=== PATIENT | male | born 1985 | race Caucasian/White ===

== ENCOUNTER 2018-11-14 10:26 | Inpatient (IN) ==
[2018-11-14] MEDS ORDERED: Ondansetron 4 MG/2 ML VIAL IVP ONE (10:39)
[2018-11-14] MEDS ORDERED: *HR* FentaNYL (PF) 100 MCG/2 ML VIAL IVP ONE (10:41)
[2018-11-14] MEDS ORDERED: 0.9 % Sodium Chloride 1,000 ML IVC ONE (10:44)
--- NOTE | 2018-11-14 10:44 | Emergency Department Note ---
Disposition Clinical Impression: Jaundice, Transaminitis Hepatitis A Qualifiers: Hepatic coma status: without hepatic coma Qualified Code(s): B15.9 - Hepatitis A without hepatic coma Hepatitis C Qualifiers: Viral hepatitis chronicity: unspecified Hepatic coma status: without hepatic coma Qualified Code(s): B19.20 - Unspecified viral hepatitis C without hepatic coma Abdominal pain Qualifiers: Abdominal location: generalized Qualified Code(s): R10.84 - Generalized abdominal pain Disposition: Admitted As Inpatient Condition: Fair Time of Disposition: 12:25 General Adult HPI - General Chief complaint: ED Abdominal Pain Stated complaint: ABD Pain, HEP A ,Yellow Time Seen by Provider: 11/14/18 10:30 Source: patient, family Mode of arrival: ambulatory Limitations: no limitations Nursing Notes Reviewed: Yes Vital Signs Reviewed: Yes - History of Present Illness HPI Narrative: 33-year-old male with significant past medical history of fatty liver, and recent hepatitis A infection presenting to the emergency department chief co mplaint of nausea, vomiting and jaundice. Patient states he was recently seen here diagnosed hepatitis A and discharged home. Since being discharged home he said diffuse nausea, vomiting and abdominal pain that has acutely gotten worse over the past 2 days. Yesterday he felt more weak than normal and today when he woke up he was jaundiced. His girlfriend forced to come into the emergency department for further evaluation. He believes he was infected with hepatitis A when he was in the local [facility] less than a month ago. Patient denies any chest pain or shortness of breath associated with this. Has denied any fevers. Pain Scale: 7 - Related Data Previous Rx's Medication Instructions Recorded Ondansetron ODT [Zofran ODT] 4 mg SL Q8HR #5 tab.rapdis 11/24/17 Doxycycline 100 mg PO BID #20 capsule 08/03/18 Allergies Allergy/AdvReac Type Severity Reaction Status Date / Time cephalexin [From Keflex] Allergy Dizziness Verified 11/11/17 12:00 All systems ED: reviewed and negative except as stated. Constitutional: Denies: fever Eyes: Reports: as per HPI ENT ED: Reports: as per HPI Cardiovascular: Denies: chest pain Respiratory: Denies: dyspnea Gastrointestinal: Reports: abdominal pain, nausea, vomiting Genitourinary: Reports: as per HPI Musculoskeletal: Reports: as per HPI Integumentary: Reports: other (jaundice) Neurological: Reports: as per HPI Psychiatric: Reports: as per HPI Endocrine: Reports: as per HPI Hematological/Lymphatic: Reports: as per HPI Allergic/Immunologic: Reports: as per HPI Past Medical History - Past Medical History Attestation: Yes The following information was validated with the patient. Medical history: Reports: other Surgical history: Reports: no surgical history Psychiatric history: Reports: no psych history - Social History Smoking Status: Current every day smoker Smokeless Tobacco Status: No Alcohol use: Reports: occasionally Drug use: Reports: none, other Physical Exam - General Limitations: no limitations General appearance: alert, other - Head Head exam: atraumatic, normal inspection - Eye Eye exam: Present: scleral icterus - ENT ENT exam: mucous membranes dry - Neck Neck exam: Present: full ROM - Chest Chest inspection: Present: symmetric chest wall rise - Respiratory Respiratory exam: Present: normal lung sounds bilaterally. Absent: respiratory distress, wheezes - Cardiovascular Cardiovascular exam: Present: normal rhythm, tachycardia, normal heart sounds - Abdominal Exam Abdominal exam: Present: tenderness, organomegaly (hepatomegaly). Absent: distention, guarding, rebound Abdominal tenderness: Present: diffuse, moderate - Extremities Exam Extremities exam: Present: full ROM - Neurological Exam Neurological exam: Present: alert, oriented X3 - Skin Skin exam: Present: other (jaundice) Course Course Narrative: 33-year-old male presenting for jaundice and abdominal pain. Patient was seen a pproximately 9 days ago and diagnosed with hepatitis A. Since then patient has had intractable nausea and vomiting and today he noticed he was jaundice. In the room is alert and oriented 3. Mildly tachycardic in the low 100s but otherwise hemodynamically stable. Patient's physical exam shows jaundice, scleral icterus, hepatomegaly. Diffuse abdominal pain. Concern for worsening jaundice and hepatitis infection. Will obtain basic laboratory analysis including hepatic panel and PT/INR and PTT. Disposition most likely admission versus transfer. Patient agrees with this plan. - Reevaluation(s) Reevaluation #1: Patient's laboratory analysis significant for a total bilirubin of 9.8. Elevated AST, ALC and alkaline phosphatase. At this time due to patient's intractable nausea and vomiting and elevated liver enzymes with active hepatitis A superinfection on hepatitis C we will plan to admit the patient for further observation and treatment. I spoke with the nurse practitioner on-call for the GI team and he agrees to consult on the patient and see him while he is admitted. He had no further intervention or treatment recommendations. I spoke with the hospitalist occupational health physiotherapist Dr. Merritt who agrees to accept the patient at this time. Patient remains alert and oriented 3 and hemodynamically stable in the room. After IV fluids, Zofran and fentanyl patient states he is feeling moderately better. Vital Signs Temperature 98.9 F 11/14/18 10:33 Pulse Rate 107 11/14/18 10:33 Respiratory Rate 20 11/14/18 10:33 Blood Pressure 134/94 11/14/18 10:33 O2 Sat by Pulse Oximetry 99 11/14/18 10:33 Temperature 98.9 F 11/14/18 10:33 Pulse Rate 107 11/14/18 10:33 Respiratory Rate 20 11/14/18 10:33 Blood Pressure 134/94 11/14/18 10:33 O2 Sat by Pulse Oximetry 99 11/14/18 10:33 Oxygen Delivery Oxygen Delivery Room Air Medical Decision Making - MDM Narrative Medical decision making narrative: 1200 hrs.: Patient has significant increase in his AST total bilirubin. His INR is also elevated. We will speak with GI and on acetaminophen level. 1210 hrs.: GI said since the patient is not encephalopathic, he can stay here. We will speak with the patient and then admit to hospitalist with FELY nguyen. - Lab Data Result diagrams: 11/14/18 10:43 11/14/18 10:43 Lab Results 11/14/18 11/14/18 11/14/18 Range/Units 10:43 10:43 10:43 WBC 6.2 (4.3-11.1) K/mcL RBC 4.86 (4.19-5.50) M/mcL Hgb 15.9 (12.9-16.9) g/dL Hct 44.3 (37.5-50.1) % MCV 91.2 (83.0-100.0) fL MCH 32.7 (28.0-33.3) pg MCHC 35.9 H (31.6-35.5) g/dL RDW 13.7 (11.5-14.5) % Plt Count 151 (140-400) K/mcL MPV 11.3 (9.4-12.4) fL Seg Neutrophils % 54.0 % Band Neutrophils % 4.0 (0-4) % Lymphocytes % 32.0 % Monocytes % 10.0 % Neutrophils # 3.6 (1.6-8.9) K/mcL Lymphocytes # 2.0 (0.6-4.6) K/mcL Monocytes # 0.6 (0.0-1.3) K/mcL Reactive Lymphocytes Present A (Not Present) Platelet Estimate Normal (Normal) PT 15.7 H (9.4-12.1) Seconds INR 1.4 APTT 43.5 H (26.0-36.0) Seconds Sodium 132 L (136-145) mEq/L Potassium 3.4 L (3.5-5.1) mEq/L Chloride 95 L (98-107) mEq/L Carbon Dioxide 29 (23-29) mEq/L BUN 3 L (6-20) mg/dL Creatinine 0.78 (0.70-1.30) mg/dL Est GFR ( Amer) > 60 (> 60) Est GFR (Non-Af Amer) > 60 (> 60) BUN/Creatinine Ratio 4 L (6-26) Glucose 119 H (70-105) mg/dL Calculated Osmolality 272 L (280-300) Calcium 8.3 L (8.6-10.3) mg/dL Total Bilirubin 9.8 H (0.3-1.0) mg/dL Direct Bilirubin 7.2 H (0.0-0.2) mg/dL Indirect Bilirubin 2.6 H (0.0-1.2) mg/dL AST 1293 H (13-39) Units/L ALT > 500 H (7-52) Units/L Alkaline Phosphatase 229 H (34-104) Units/L Serum Total Protein 6.7 (6.4-8.9) g/dL Albumin 3.6 (3.5-5.7) g/dL Globulin 3.1 (2.4-3.5) g/dL Albumin/Globulin Ratio 1.2 (1.1-2.2) Lipase 63 (11-82) Units/L Acetaminophen < 10 L (10-20) mcg/mL Critical Care Time Critical Care Time: Yes Total Critical Care Time: 30 Attestation: Excluding any separately billable procedures. Attestation Statement - Attestation Attestation: This documentation is done with the assistance of Dragon dictation. Despite efforts made to ensure accuracy, there may be inaccuracies in inspector outside steam distribution or spelling and typographical errors. I examined this patient and my medical decision-making was reviewed with the Resident Physician. I agree with the documented findings, disposition and treatment plan as described except to the extent set forth below. Patient seen and evaluated by Dr. Bowens and myself, I agree with her evaluation and management plan, I supervised the care the patient's stay. Patient has a history of hepatitis A and hepatitis C and presents with jaundice and nausea and some abdominal discomfort today. We will check his labs try to make him more comfortable then speak with GI. He is in agreement with plan. He will most likely need admission.
[2018-11-14 11:07] LABS: Hematocrit 44.3 % (37.5-50.1); Hemoglobin 15.9 g/dL (12.9-16.9); Mean Corpuscular HGB Conc 35.9 g/dL (31.6-35.5); Mean Corpuscular Hemoglobin 32.7 pg (28.0-33.3); Mean Corpuscular Volume 91.2 fL (83.0-100.0); Mean Platelet Volume 11.3 fL (9.4-12.4); Platelet Count 151 K/mcL (140-400); Red Blood Count 4.86 M/mcL (4.19-5.50); Red Cell Distribution Width 13.7 % (11.5-14.5)
[2018-11-14 11:17] LABS: INR 1.4; Prothrombin Time 15.7 Seconds (9.4-12.1)
[2018-11-14 11:20] LABS: Activated Partial Thrombo Time 43.5 Seconds (26.0-36.0)
[2018-11-14 11:41] LABS: Alanine Aminotransferase > 500 Units/L (7-52); Albumin 3.6 g/dL (3.5-5.7); Albumin/Globulin Ratio 1.2 (1.1-2.2); Alkaline Phosphatase 229 Units/L (34-104); Aspartate Amino Transferase 1293 Units/L (13-39); BUN/Creatinine Ratio 4 (6-26); Bilirubin,Direct 7.2 mg/dL (0.0-0.2); Bilirubin,Indirect 2.6 mg/dL (0.0-1.2); Bilirubin,Total 9.8 mg/dL (0.3-1.0); Blood Urea Nitrogen 3 mg/dL (6-20); Calcium 8.3 mg/dL (8.6-10.3); Carbon Dioxide 29 mEq/L (23-29); Chloride 95 mEq/L (98-107); Globulin 3.1 g/dL (2.4-3.5); Glucose 119 mg/dL (70-105); Lipase 63 Units/L (11-82); Osmolality,Calculated 272 (280-300); Potassium 3.4 mEq/L (3.5-5.1); Sodium 132 mEq/L (136-145); Total Protein 6.7 g/dL (6.4-8.9); eGFR For Non-African Americans > 60 (> 60)
[2018-11-14 11:46] LABS: Monocytes # 0.6 K/mcL (0.0-1.3); Neutrophils # 3.6 K/mcL (1.6-8.9)
[2018-11-14 11:47] LABS: Platelet Estimate Normal (Normal); Reactive Lymphocytes Present (Not Present)
[2018-11-14 12:16] LABS: Acetaminophen < 10 mcg/mL (10-20)
[2018-11-14] MEDS ORDERED: Naloxone 0.4 MG/ML INJ IVP PRN (12:25)
[2018-11-14] MEDS ORDERED: 0.9 % Sodium Chloride 1,000 ML IVC SCH (12:30)
[2018-11-14 13:08] LABS: Bilirubin,Urine Large (Negative); Blood,Urine Negative (Negative); Clarity,Urine Slightly Hazy (Clear); Color,Urine Orange (Yellow); Glucose,Urine (UA) 250 mg/dL (Normal); Ketones,Urine Negative (Negative); PH,Urine 6.5 pH Units (5.0-8.0); Protein,Urine Negative (Neg-Trace); Specific Gravity,Urine 1.007 (1.010-1.025)
[2018-11-14 13:09] LABS: Leukocyte Esterase,Urine Trace (Negative); Nitrite,Urine Negative (Negative); Urobilinogen,Urine Normal (Normal)
[2018-11-14 13:10] LABS: Squamous Epithelial Cell,Urine Few per lpf (None-Few)
[2018-11-14 13:12] LABS: Bacteria,Urine Few per hpf (None-Few)
--- NOTE | 2018-11-14 13:19 | Internal Med History&Physical ---
Addendum entered and electronically signed by Matthew Eisenberg DO 11/14/18 14:28: Patient also has history of alcohol dependence and does display some signs of alcohol withdrawal. Will place him on CIWA protocol as a result. Original Note: <Matthew Eisenberg - Last Filed: 11/14/18 13:43> Date of Encounter: 11/14/18 Time of Encounter: 12:45 Assessment and Plan (1) Hepatitis A Current visit: Yes Status: Acute Patient was recently diagnosed with hepatitis A in the past few weeks. Likely exacerbated by daily usage of alcohol. Patient has elevated transaminases as well as an alkaline phosphatase. He presents with generalized abdominal tenderness. No thrombocytopenia was noticed. INR was in normal range. No active bleeding was noticed. No pruritus was noted. Patient's vital signs have been stable. - IV hydration - Clear liquid diet - Zofran as needed Qualifiers: Hepatic coma status: without hepatic coma Qualified Code(s): B15.9 - Hepatitis A without hepatic coma (2) Transaminitis Current visit: Yes Status: Acute Secondary to acute hepatitis A infection. (3) Jaundice Current visit: Yes Status: Acute Secondary to acute hepatitis A infection. (4) Hypokalemia Current visit: Yes Status: Acute Secondary to vomiting. Potassium at 3.4. - Normal saline with 10 mEq of potassium chloride. (5) UTI (urinary tract infection) Current visit: Yes Status: Acute Trace leukocyte esterase and urine. Patient is asymptomatic. - No need for treatment since patient is asymptomatic. - Culture pending. Qualifiers: Urinary tract infection type: acute cystitis Hematuria presence: without hematuria Qualified Code(s): N30.00 - Acute cystitis without hematuria (6) DVT prophylaxis Current visit: Yes Status: Acute SCD's. Internal Medicine - H&P: HPI Chief complaint: Nausea, vomiting Admitted From: Emergency Dept History of present illness: Mr. Campbell is a 33 year old male with a past medical history of recent hepatitis A, hepatitis C (nonactive), IV drug abuse history, and fatty liver that presents for nausea, vomiting, and jaundice. Patient was recently diagnosed with hepatitis A infection a few weeks ago. Patient says that since yesterday he noticed yellowing of his skin, increased vomiting and nausea, and increased abdominal tenderness. He denies any fever. He does say that he feels like he caught a cold yesterday citing clear productive sputum with cough. Patient also admits that he has been continuously drinking alcohol. He says he normally drinks 2-3 cans of [employer] hard lemonade daily although as of late he has been only been able to handle one can. He does state it is been trying to stay adequately hydrated throughout the day. Patient presented to the ED on 11/14/2018. He was noticed to have jaundice, scleral icterus and hepatomegaly on examination. His liver enzymes showed an AST of 1293 and an ALT of 500. He demonstrated an alkaline phosphatase of 229. His renal function was normal. He did show an elevated prothrombin time and PTT. INR was in normal range. No thrombocytopenia was noted. He showed an elevated total bilirubin of 9.8. Patient was admitted for active hepatitis A infection and the need for IV hydration. When seen today patient admits to yellowing of the skin. He admits to increased nausea and vomiting. Admits to increased generalized abdominal p ain. Admits to a minor cough is productive with clear sputum. Denies any fever. Denies dysuria or hematuria. Past Med Surg Social Fam HX - Past Medical History Medical history: other Additional medical history: HEP A Psychiatric history: no psych history - Past Surgical History Surgical History: no surgical history - Social History Smoking Status: Current every day smoker Smokeless Tobacco Status: No Alcohol use: occasionally Drug use: none, other Internal Medicine - H&P: Meds Ondansetron ODT [Zofran ODT] 4 mg SL Q8HR #5 tab.rapdis 11/24/17 [Rx] RX: Doxycycline 100 mg PO BID #20 capsule 08/03/18 [Rx] Allergy/AdvReac Type Severity Reaction Status Date / Time cephalexin [From Keflex] Allergy Dizziness Verified 11/11/17 12:00 All Systems PM: A 10-system review of systems was performed and is negative for pertinent findings except as documented above in the HPI. Review of systems: As per history of present illness - Constitutional Vitals: Temp Pulse Resp BP Pulse Ox 98.6 F 92 15 127/81 96 11/14/18 12:59 11/14/18 12:59 11/14/18 12:59 11/14/18 12:59 11/14/18 12:59 General appearance: Present: A&O X 3, no acute distress, answers questions appropriately - Head Head exam: Present: atraumatic, normocephalic - Eye Eye exam: Present: EOMI, scleral icterus - ENT ENT exam: Present: mucous membranes moist, normal oropharynx Additional comments: There was some sublingual jaundice noticed. - Respiratory Respiratory exam: Present: CTAB. Absent: accessory muscle use, rales, rhonchi, wheezes - Cardiovascular Cardiovascular exam: Present: RRR, +S1, +S2. Absent: diastolic murmur, gallop, rubs, systolic murmur - GI/Abdominal GI/Abdominal exam: Present: hepatomegaly (Hepatomegaly noticed. 1-2 cm below right lower costal region), normal bowel sounds, soft, tenderness (Mild generalized tenderness). Absent: guarding, rebound - Extremities Exam Extremities exam: Present: warm, radial pulses palpable and symmetrical. Absent: calf tenderness, cyanotic, pedal edema - Skin Skin exam: Present: warm Additional comments: Generalized jaundice of the skin most notably in the upper chest and neck and facial region noted. Internal Med - H&P Results - Labs CBC & Chem 7: 11/14/18 10:43 11/14/18 10:43 Labs: Short CBC 11/14/18 Range/Units 10:43 WBC 6.2 (4.3-11.1) K/mcL Hgb 15.9 (12.9-16.9) g/dL Hct 44.3 (37.5-50.1) % Plt Count 151 (140-400) K/mcL Neutrophils # 3.6 (1.6-8.9) K/mcL BMP 11/14/18 10:43 Sodium 132 L Potassium 3.4 L Chloride 95 L Carbon Dioxide 29 BUN 3 L Creatinine 0.78 Glucose 119 H Calcium 8.3 L Liver Function 11/14/18 Range/Units 10:43 Total Bilirubin 9.8 H (0.3-1.0) mg/dL Direct Bilirubin 7.2 H (0.0-0.2) mg/dL AST 1293 H (13-39) Units/L ALT > 500 H (7-52) Units/L Alkaline Phosphatase 229 H (34-104) Units/L Albumin 3.6 (3.5-5.7) g/dL Urine 11/14/18 Range/Units 12:37 Urine Color Virgie A (Yellow) Urine Clarity Slightly Hazy (Clear) Urine pH 6.5 (5.0-8.0) pH Units Ur Specific [place] 1.007 L (1.010-1.025) Urine Protein Negative (Neg-Trace) mg/dL Urine Glucose (UA) 250 H (Normal) mg/dL <Yosi Marx - Last Filed: 11/14/18 15:21> Date of Encounter: 11/14/18 Internal Medicine - H&P: HPI History of present illness: Mr. Campbell is a 33 year old male All Systems PM: A 10-system review of systems was performed and is negative for pertinent findings except as documented above in the HPI. - Constitutional Vitals: Temp Pulse Resp BP Pulse Ox 98.6 F 92 15 127/81 96 11/14/18 12:59 11/14/18 12:59 11/14/18 12:59 11/14/18 12:59 11/14/18 12:59 Internal Med - H&P Results - Labs CBC & Chem 7: 11/14/18 10:43 11/14/18 10:43 Labs: Short CBC 11/14/18 Range/Units 10:43 WBC 6.2 (4.3-11.1) K/mcL Hgb 15.9 (12.9-16.9) g/dL Hct 44.3 (37.5-50.1) % Plt Count 151 (140-400) K/mcL Neutrophils # 3.6 (1.6-8.9) K/mcL BMP 11/14/18 10:43 Sodium 132 L Potassium 3.4 L Chloride 95 L Carbon Dioxide 29 BUN 3 L Creatinine 0.78 Glucose 119 H Calcium 8.3 L Liver Function 11/14/18 Range/Units 10:43 Total Bilirubin 9.8 H (0.3-1.0) mg/dL Direct Bilirubin 7.2 H (0.0-0.2) mg/dL AST 1293 H (13-39) Units/L ALT > 500 H (7-52) Units/L Alkaline Phosphatase 229 H (34-104) Units/L Albumin 3.6 (3.5-5.7) g/dL Urine 11/14/18 Range/Units 12:37 Urine Color Virgie A (Yellow) Urine Clarity Slightly Hazy (Clear) Urine pH 6.5 (5.0-8.0) pH Units Ur Specific [place] 1.007 L (1.010-1.025) Urine Protein Negative (Neg-Trace) mg/dL Urine Glucose (UA) 250 H (Normal) mg/dL - Attending Attestation I examined this patient and my medical decision-making was reviewed with the Resident Physician Dr. Eisenberg. I agree with the documented findings, disposition and treatment plan as described except to the extent set forth below. Mr. Campbell is a 33 year old male with a past medical history of recent hepatitis A, chronic hepatitis C, IV drug abuse history, and fatty liver that presents to ER with worsening nausea, vomiting, and jaundice. Patient was recently diagnosed with hepatitis A infection dx on 11/05/18. Pt is chronic alcoholic too he still drinking 1-2 beers every night. He denied any CP / SOB. Gen: A, A, O x 3 Chest: CTAB NNo crackles, no wheeing Heart: S1S2+ RRR No murmurs HEENT: Sclera - icteric Skin- slightly jaundiced a/p 1. Acute non obstructive jaundice due to Hep A inf + Alcoholism 2. Acute Hep A inf 3. chronic Hep C 4. Alcohol dependence Clear liquid diet IV hydration Thiamine and Folic acid B12 inj CIWA protocol Ativan as needed
[2018-11-14] MEDS ORDERED: *HR* LORazepam 2 MG/ML VIAL IVP PRN ×3 (14:26)
[2018-11-14] MEDS: Thiamine (B-1) 100 MG TABLET PO SCH (15:01)
[2018-11-14] MEDS: Folic Acid 1 MG TABLET PO SCH (15:01)
[2018-11-14] MEDS: Vitamin B Complex/Vit C/Vit E 1 EACH TABLET PO SCH (15:01)
[2018-11-14] MEDS ORDERED: Cyanocobalamin (B-12) 1,000 MCG/ML VIAL IM ONE (15:10)
[2018-11-14] MEDS: OXYCODONE Oral CONC 10 MG/0.5 ML ORAL.SYG SL PRN ×2 (16:13→21:39)
[2018-11-14] MEDS: Ondansetron 4 MG/2 ML VIAL IVP PRN (19:32)
[2018-11-14] MEDS ORDERED: Ibuprofen 400 MG TABLET PO ONE (22:15)
[2018-11-15 06:32] LABS: Basophils % 1.1 %; Eosinophils # 0.1 K/mcL (0.0-0.6); Eosinophils % 1.9 %; Hemoglobin 15.2 g/dL (12.9-16.9); Immature Granulocytes % 0.3 % (0-4); Mean Corpuscular HGB Conc 35.3 g/dL (31.6-35.5); Mean Corpuscular Hemoglobin 32.4 pg (28.0-33.3); Mean Corpuscular Volume 91.7 fL (83.0-100.0); Mean Platelet Volume 11.7 fL (9.4-12.4); Monocytes # 0.6 K/mcL (0.0-1.3); Monocytes % 16.7 %; Platelet Count 123 K/mcL (140-400); Red Blood Count 4.69 M/mcL (4.19-5.50)
[2018-11-15 06:39] LABS: INR 1.6; Prothrombin Time 18.2 Seconds (9.4-12.1)
[2018-11-15 06:41] LABS: Activated Partial Thrombo Time 51.4 Seconds (26.0-36.0)
[2018-11-15 06:58] LABS: Platelet Estimate Slight Decrease (Normal); Reactive Lymphocytes Present (Not Present)
[2018-11-15 07:11] LABS: Alanine Aminotransferase > 500 Units/L (7-52); Albumin 2.9 g/dL (3.5-5.7); Albumin/Globulin Ratio 1.1 (1.1-2.2); Alkaline Phosphatase 182 Units/L (34-104); Aspartate Amino Transferase 1150 Units/L (13-39); BUN/Creatinine Ratio 5 (6-26); Bilirubin,Total 11.4 mg/dL (0.3-1.0); Blood Urea Nitrogen 4 mg/dL (6-20); Calcium 8.3 mg/dL (8.6-10.3); Carbon Dioxide 27 mEq/L (23-29); Chloride 102 mEq/L (98-107); Globulin 2.6 g/dL (2.4-3.5); Glucose 82 mg/dL (70-105); Osmolality,Calculated 274 (280-300); Sodium 134 mEq/L (136-145); Total Protein 5.5 g/dL (6.4-8.9); eGFR For Non-African Americans > 60 (> 60)
[2018-11-15] MEDS ORDERED: Cyanocobalamin (B-12) 1,000 MCG TABLET PO SCH (09:00)
[2018-11-15] MEDS: Vitamin B Complex/Vit C/Vit E 1 EACH TABLET PO SCH (09:41)
[2018-11-15] MEDS: Cyanocobalamin (B-12) 1,000 MCG/ML VIAL IM SCH (09:41)
[2018-11-15] MEDS: Folic Acid 1 MG TABLET PO SCH ×2 (09:41→09:51)
[2018-11-15] MEDS: Thiamine (B-1) 100 MG TABLET PO SCH (09:41)
[2018-11-15] MEDS: OXYCODONE Oral CONC 10 MG/0.5 ML ORAL.SYG SL PRN ×2 (09:42→17:38)
[2018-11-15] MEDS: 0.9 % Sodium Chloride 1,000 ML IVC SCH ×2 (10:02→23:55)
--- NOTE | 2018-11-15 10:28 | Internal Med Progress Note ---
Hospitalist Progress Note - Encounter Date of Encounter: 11/15/18 Time of Encounter: 10:00 - Subjective Interval History: Mr. Campbell is a 33 year old male with a past medical history of recent hepatitis A, chronic hepatitis C, IV drug abuse history, and fatty liver that presented to ER with worsening nausea, vomiting, and jaundice. Patient was recently diagnosed with hepatitis A infection dx on 11/05/18. Pt is chronic alcoholic too he still drinking 1-2 beers every night. He denied any CP / SOB. Patient was seen and examined bedside. He still feeling very weak and lethargic. Started having tremors today. He is tolerating clear liquid diet well. Still have mild right upper quadrant discomfort. - Exam Vitals: Temp Pulse Resp BP Pulse Ox 97.9 F 71 16 109/71 98 11/15/18 06:42 11/15/18 06:42 11/15/18 06:42 11/15/18 06:42 11/15/18 06:42 Exam: Gen: Alert, awake, Oriented to time,place and person, looks weak and lethargic..Tremors+ Chest: Diminished breath sounds B/L, No wheezing, No crackles, No rales Heart: S1S2+ RRR No murmurs Abd: Soft, mildly discomfort and right upper quadrant area, BS +, No organomegaly Ext: No edema, pulses are palpable, No calf tenderness Neuro : Benign findings Skin: No rash. - Assessment and Plan (1) Hepatitis A Current Visit: Yes Status: Acute Assessment and Plan: Total bilirubin still trending up continue close monitoring continue IV hydration avoid hepatotoxic medications continue symptomatic and supportive care Patient does need to stay in the hospital more than 2 midnights and need to close monitoring of his labs due to his complex medical problems. So we will change him to full admission today. (2) Jaundice Current Visit: Yes Status: Acute Assessment and Plan: Due to hepatitis A infection Reviewed his RUQ US - showed extensive diffuse edematous gallbladder wall thickening suggesting acalculus cholecystitis mostly due to hepatitis if patient pain won't improve with symptomatic and supportive care, will consider surgery consult for further workup (3) Abdominal pain Current Visit: Yes Status: Acute Assessment and Plan: due to acute infectious Hepatitis continue symptomatic and supportive care (4) Alcohol dependence Current Visit: Yes Status: Acute Assessment and Plan: High risk to go to DTs continue CIWA protocol Ativan as needed Counseled the pt to quit drinking (5) B12 deficiency Current Visit: Yes Status: Acute Assessment and Plan: Due to chronic alcohol dependence started him on B12 supplements (6) UTI (urinary tract infection) Current Visit: Yes Status: Acute Assessment and Plan: UA seems to be abnormal Started him on Cipro will follow-up on urine culture (7) Hepatitis C Current Visit: Yes Status: Acute Assessment and Plan: Need to follow up with PCP / ID as an outpatient - Time Spent with Patient Total time spent is greater than 50% in coordination of care (as documented) at patient's floor/unit and/or counseling patient: Internal Medicine: Result - Labs CBC & Chem 7: 11/15/18 06:09 11/15/18 06:09 Labs: Short CBC 11/14/18 11/15/18 Range/Units 10:43 06:09 WBC 6.2 3.7 L (4.3-11.1) K/mcL Hgb 15.9 15.2 (12.9-16.9) g/dL Hct 44.3 43.0 (37.5-50.1) % Plt Count 151 123 L (140-400) K/mcL Neutrophils # 3.6 2.0 (1.6-8.9) K/mcL BMP 11/14/18 11/15/18 10:43 06:09 Sodium 132 L 134 L Potassium 3.4 L 4.0 Chloride 95 L 102 Carbon Dioxide 29 27 BUN 3 L 4 L Creatinine 0.78 0.81 Glucose 119 H 82 Calcium 8.3 L 8.3 L Liver Function 11/14/18 11/15/18 Range/Units 10:43 06:09 Total Bilirubin 9.8 H 11.4 H (0.3-1.0) mg/dL Direct Bilirubin 7.2 H (0.0-0.2) mg/dL AST 1293 H 1150 H (13-39) Units/L ALT > 500 H > 500 H (7-52) Units/L Alkaline Phosphatase 229 H 182 H (34-104) Units/L Albumin 3.6 2.9 L (3.5-5.7) g/dL Urine 11/14/18 Range/Units 12:37 Urine Color Glenn A (Yellow) Urine Clarity Slightly Hazy (Clear) Urine pH 6.5 (5.0-8.0) pH Units Ur Specific [place] 1.007 L (1.010-1.025) Urine Protein Negative (Neg-Trace) mg/dL Urine Glucose (UA) 250 H (Normal) mg/dL - ABG Interpretation ABG results: PT/INR, D-dimer PT 18.2 Seconds (9.4-12.1) H 11/15/18 06:09 - Impressions Impressions Liver Ultrasound 11/14/18 15:21 IMPRESSION: 1. Extensive new diffuse edematous gallbladder wall thickening with questionable trace pericholecystic fluid, suggesting acalculous cholecystitis. Consider confirmation with a nuclear medicine hepatobiliary scan. 2. No associated biliary obstruction. D/ / Louie Gay MD / Louie Gay MD Interpreting Provider: Louie Gay MD Consult Discharge Plan - Plan Referrals: Matthew Eisenberg DO [Primary Care Provider] - (1) Hepatitis A Qualifiers: Hepatic coma status: without hepatic coma Qualified Code(s): B15.9 - Hepatitis A without hepatic coma (3) Abdominal pain Qualifiers: Abdominal location: generalized Qualified Code(s): R10.84 - Generalized abdominal pain (6) UTI (urinary tract infection) Qualifiers: Urinary tract infection type: acute cystitis Hematuria presence: without hematuria Qualified Code(s): N30.00 - Acute cystitis without hematuria (7) Hepatitis C Qualifiers: Viral hepatitis chronicity: unspecified Hepatic coma status: without hepatic coma Qualified Code(s): B19.20 - Unspecified viral hepatitis C without hepatic coma
[2018-11-15] MEDS ORDERED: WATER IVC ONE (13:30)
[2018-11-15] MEDS ORDERED: D5 IVC ONE (13:30)
[2018-11-15] MEDS ORDERED: ACETYLCYSTEINE IVC ONE (13:30)
[2018-11-15] MEDS ORDERED: Insulin Human Regular 4 UNIT in 0.9 % Sodium Chloride 10 ML IV ONE (13:35)
[2018-11-15] MEDS ORDERED: Acetylcysteine 3,900 MG in D5% in Water 500 ML IVC ONE (14:30)
[2018-11-15] MEDS: Ondansetron 4 MG/2 ML VIAL IVP PRN (15:14)
--- NOTE | 2018-11-15 15:35 | Gastroenterology Consult Note ---
<Dmitri Larsen - Last Filed: 11/15/18 16:22> Date of Encounter: 11/15/18 Time of Encounter: 09:15 - Assessment and plan (1) Hepatitis A Current Visit: Yes Status: Acute Assessment and plan: Patient with reactive Hepatitis A labs 10 days ago Was seen previously in ED on 11/05, and was discharged with symptom resolution - he returned for similar complaints Continue supportive care Patient on IVF hydration Patient on zofran for nausea Patient on oxycodone for pain Patient started on soft diet Will start N-acetylcysteine regimen, but patient will need to remain inpatient for 3 days Qualifiers: Hepatic coma status: without hepatic coma Qualified Code(s): B15.9 - Hepatitis A without hepatic coma (2) Hepatitis C Current Visit: Yes Status: Acute Assessment and plan: Patient's lab was reactive for Hepatitis C on 11/15 Follow-up labs of hep C RNA quant and viral load were not detected Patient's presentation is more likely related to acute hepatitis A infection Qualifiers: Viral hepatitis chronicity: unspecified Hepatic coma status: without hepatic coma Qualified Code(s): B19.20 - Unspecified viral hepatitis C without hepatic coma - Time Spent With Patient Total time spent is greater than 50% in coordination of care (as documented) at patient's floor/unit and/or counseling patient: GI History of Present Illness - Data of Consult Consult date: 11/15/18 Requesting Physician: Yosi Marx MD - Consult Narrative Reason for consult: Hepatitis A History of present illness: Mr. Campbell is a 33 year old male with PMHx of Hep C, recent hep A, IV drug use presented to [facility] on 11/14 with complaints of abdominal pain, nausea, vomiting, and jaundice. GI was consulted for acute hepatitis A infection. Patient's labs in ED were significant for Pt 15.7, INR 1.4, T. bili 9.8, AST 1293, ALT >500, Alk phos 229. Acetaminophen level less than 10. US showed edematous GB wall thickening with trace pericholecystic fluid and no ductal obstruction, normal appearing liver. Patient seen and examined today. He states his abdominal pain is mainly in RUQ with some radiation to the left upper quadrant. It started about a week ago. He complains of nausea and non-bloody vomiting for the past 2 weeks. Patient hasn't had a BM for 5-6 days, but states he doesn't have an appetite and hasn't eaten much. Patient was seen in the ED on 11/05 for similar complaints and was discharged home after resolution of symptoms. Abdomen/pelvis CT during that visit was unremarkable. Later blood work came back reactive for Hep A, and patient was called and informed of results. Patient states his symptoms did improve when he was in the ED 10 days ago, but today he feels about the same as he did during that visit. Patient admits to history of IV drug use and 3 tattoos. He is currently on suboxone for treatment for his opioid addiction. He admits to drinking 1-2 [employer] hard lemonade most nights of the week. He is a current smoker or less than 1/2 PPD for the past 12 years. He denies EGD or colonoscopy in the past. Past Med Surg Social Fam HX - Past Medical History Medical history: other Additional medical history: HEP A, IV drug use, smoker,fatty liver, Psychiatric history: no psych history - Past Surgical History Surgical History: no surgical history - Social History Smoking Status: Current every day smoker Packs per day: 1/2 Smokeless Tobacco Status: No Alcohol use: occasionally Drug use: none, other - Constitutional Vitals: Temp Pulse Resp BP Pulse Ox 98 F 74 16 115/70 98 11/15/18 11:17 11/15/18 11:17 11/15/18 11:17 11/15/18 11:17 11/15/18 11:17 General appearance: Present: A&O X 3 Exam: moderate distress - Eye Eye exam: Present: scleral icterus - Respiratory Respiratory exam: Present: CTAB - Cardiovascular Cardiovascular exam: Present: RRR - GI/Abdominal GI/Abdominal exam: Present: normal bowel sounds, soft, tenderness (RUQ, epigatrium, and LUQ). Absent: bruit, distended, firm, guarding, no peritoneal signs - Neurological Exam Neurological exam: Present: no focal deficits Additional comments: no encephalopathy, no asterixis - Skin Additional comments: Jaundice Results - Labs CBC & Chem 7: 11/15/18 06:09 11/15/18 06:09 Labs: Last Result Calcium 8.3 mg/dL (8.6-10.3) L 11/15/18 06:09 Entire Visit Hgb 15.2 g/dL (12.9-16.9) 11/15/18 06:09 Hct 43.0 % (37.5-50.1) 11/15/18 06:09 PT 18.2 Seconds (9.4-12.1) H 11/15/18 06:09 Total Bilirubin 11.4 mg/dL (0.3-1.0) H 11/15/18 06:09 AST 1150 Units/L (13-39) H 11/15/18 06:09 ALT > 500 Units/L (7-52) H 11/15/18 06:09 Lipase 63 Units/L (11-82) 11/14/18 10:43 Acetaminophen < 10 mcg/mL (10-20) L 11/14/18 10:43 - ABG ABG results: PT/INR, D-dimer PT 18.2 Seconds (9.4-12.1) H 11/15/18 06:09 - Impressions Impressions Liver Ultrasound 11/14/18 15:21 IMPRESSION: 1. Extensive new diffuse edematous gallbladder wall thickening with questionable trace pericholecystic fluid, suggesting acalculous cholecystitis. Consider confirmation with a nuclear medicine hepatobiliary scan. 2. No associated biliary obstruction. D/ / Louie Gay MD / Louie Gay MD Interpreting Provider: Louie Gay MD Consult Discharge Plan - Plan Referrals: Matthew Eisenberg DO [Primary Care Provider] - <Ranjith Petit - Last Filed: 11/16/18 14:41> Date of Encounter: 11/15/18 Time of Encounter: 13:00 - Time Spent With Patient Total time spent is greater than 50% in coordination of care (as documented) at patient's floor/unit and/or counseling patient: GI History of Present Illness - Data of Consult Requesting Physician: Yosi Marx MD - Consult Narrative History of present illness: Mr. Campbell is a 33 year old male - Constitutional Vitals: Temp Pulse Resp BP Pulse Ox 99.0 F 79 15 112/71 96 11/16/18 10:53 11/16/18 10:53 11/16/18 10:53 11/16/18 10:53 11/16/18 10:53 Results - Labs CBC & Chem 7: 11/16/18 08:41 11/16/18 11:08 Labs: Last Result Calcium 8.3 mg/dL (8.6-10.3) L 11/16/18 11:08 Entire Visit Hgb 14.0 g/dL (12.9-16.9) 11/16/18 08:41 Hct 38.6 % (37.5-50.1) 11/16/18 08:41 PT 20.9 Seconds (9.4-12.1) H 11/16/18 11:08 Total Bilirubin 14.4 mg/dL (0.3-1.0) H 11/16/18 08:41 AST 815 Units/L (13-39) H 11/16/18 08:41 ALT > 500 Units/L (7-52) H 11/16/18 08:41 Lipase 63 Units/L (11-82) 11/14/18 10:43 Acetaminophen < 10 mcg/mL (10-20) L 11/14/18 10:43 - ABG ABG results: PT/INR, D-dimer PT 20.9 Seconds (9.4-12.1) H 11/16/18 11:08 - Attending Attestation I examined this patient and my medical decision-making was reviewed with the Resident Physician. I agree with the documented findings, disposition and treatment plan as described except to the extent set forth below. Patient seen. Examination patient deeply jaundiced. Has upper abdominal tenderness. Assessment: Acute hepatitis with the liver failure patient is not encephalopathic. Patient bilirubin has been worsening. Recommendation: IV fluid supportive care and also started on Mucomyst
[2018-11-15] MEDS: Acetylcysteine 7,700 MG in D5% in Water 1,000 ML IVC SCH (19:50)
[2018-11-15] MEDS ORDERED: *HR* LORazepam 0.5 MG TABLET PO ONE (23:31)
[2018-11-16] MEDS: OXYCODONE Oral CONC 10 MG/0.5 ML ORAL.SYG SL PRN ×3 (00:42→21:54)
[2018-11-16 09:19] LABS: Hematocrit 38.6 % (37.5-50.1); Mean Corpuscular HGB Conc 36.3 g/dL (31.6-35.5); Mean Corpuscular Hemoglobin 32.3 pg (28.0-33.3); Mean Corpuscular Volume 89.1 fL (83.0-100.0); Mean Platelet Volume 12.5 fL (9.4-12.4); Platelet Count 116 K/mcL (140-400); Red Blood Count 4.33 M/mcL (4.19-5.50); Red Cell Distribution Width 13.6 % (11.5-14.5)
[2018-11-16] MEDS: Thiamine (B-1) 100 MG TABLET PO SCH (09:37)
[2018-11-16] MEDS: Vitamin B Complex/Vit C/Vit E 1 EACH TABLET PO SCH (09:37)
[2018-11-16] MEDS: Folic Acid 1 MG TABLET PO SCH (09:37)
[2018-11-16] MEDS: 0.9 % Sodium Chloride 1,000 ML IVC SCH ×2 (09:37→09:44)
[2018-11-16] MEDS: Cyanocobalamin (B-12) 1,000 MCG/ML VIAL IM SCH (09:38)
[2018-11-16 09:51] LABS: Alanine Aminotransferase > 500 Units/L (7-52); Albumin 2.8 g/dL (3.5-5.7); Albumin/Globulin Ratio 1.1 (1.1-2.2); Alkaline Phosphatase 155 Units/L (34-104); Aspartate Amino Transferase 815 Units/L (13-39); Bilirubin,Direct 9.7 mg/dL (0.0-0.2); Bilirubin,Indirect 4.7 mg/dL (0.0-1.2); Bilirubin,Total 14.4 mg/dL (0.3-1.0); Globulin 2.5 g/dL (2.4-3.5); Total Protein 5.3 g/dL (6.4-8.9)
--- NOTE | 2018-11-16 11:45 | Internal Med Progress Note ---
<Matthew Eisenberg - Last Filed: 11/16/18 11:43> Date of Encounter: 11/16/18 Time of Encounter: 09:10 - Assessment and plan (1) Hepatitis A Current Visit: Yes Status: Acute Assessment and plan: Total bilirubin still seems to be still increasing. Was at 11.4 yesterday and today at 14.4. His liver enzymes are down trending. Yesterday his AST and ALT were at 1150 and > 500 respectively and today are oat 815 and > 500. Alk phosph is also dwontrending. - Continue IV hydration. -Avoid hepatotoxic medications. - continue symptomatic and supportive care. Qualifiers: Hepatic coma status: without hepatic coma Qualified Code(s): B15.9 - Hepatitis A without hepatic coma (2) Transaminitis Current Visit: Yes Status: Acute Assessment and plan: Downtrending. (3) Jaundice Current Visit: Yes Status: Resolved (4) UTI (urinary tract infection) Current Visit: Yes Status: Acute Assessment and plan: UA showed signs of infection however urine culture showed no growth. Patient afebrile. Denies any dysuria or hematuria. - Stop ciprofloxacin treatment. Qualifiers: Urinary tract infection type: acute cystitis Hematuria presence: without hematuria Qualified Code(s): N30.00 - Acute cystitis without hematuria (5) Alcohol dependence Current Visit: Yes Status: Acute Assessment and plan: High risk to go to DTs. Currently denies any tremors. - continue CIWA protocol - Ativan as needed - Counseled the pt to quit drinking Qualifiers: Substance use status: in withdrawal Complication of substance-induced condition: uncomplicated Qualified Code(s): F10.230 - Alcohol dependence with withdrawal, uncomplicated (6) B12 deficiency Current Visit: Yes Status: Acute Assessment and plan: Secondary to alcohol dependence. - Continue 1000 mcg IM daily. (7) Hepatitis C Current Visit: Yes Status: Acute Assessment and plan: Chronic hepatitis. No active viral load detected in recent labs. Qualifiers: Viral hepatitis chronicity: unspecified Hepatic coma status: without hepatic coma Qualified Code(s): B19.20 - Unspecified viral hepatitis C without hepatic coma (8) DVT prophylaxis Current Visit: Yes Status: Acute Assessment and plan: SCD's. - Subjective Interval history: When seen today patient denies any nausea. He did admit to one bout of vomiting yesterday afternoon. He denies any hematemesis. Patient says his abdominal pain has improved and has reduced from a 5 out of 10 to a 3 out of 10 in severity. She denies any tremors. Denies any chest pain or shortness of breath. Denies any fever. He is able to tolerate solid foods and liquids. Denies any bleeding, melena, or hematochezia. Denies any dysuria or hematuria. - Constitutional Vitals: Temp Pulse Resp BP Pulse Ox 99.0 F 79 15 112/71 96 11/16/18 10:53 11/16/18 10:53 11/16/18 10:53 11/16/18 10:53 11/16/18 10:53 General appearance: Present: A&O X 3, no acute distress, answers questions appropriately - Eye Eye exam: Present: sclera anicteric - Respiratory Respiratory exam: Present: CTAB. Absent: accessory muscle use, rales, rhonchi, wheezes - Cardiovascular Cardiovascular exam: Present: RRR, +S1, +S2. Absent: diastolic murmur, gallop, rubs, systolic murmur - GI/Abdominal GI/Abdominal exam: Present: normal bowel sounds, soft, tenderness (Mild tenderness in all 4 quadrants with deep palpation.). Absent: guarding, rebound - Extremities Exam Extremities exam: Present: warm, radial pulses palpable and symmetrical. Absent: calf tenderness, cyanotic, pedal edema - Skin Additional comments: No jaundice noted. Internal Medicine: Result - Labs CBC & Chem 7: 11/16/18 08:41 11/15/18 06:09 Labs: Short CBC 11/16/18 Range/Units 08:41 WBC 4.4 (4.3-11.1) K/mcL Hgb 14.0 (12.9-16.9) g/dL Hct 38.6 (37.5-50.1) % Plt Count 116 L (140-400) K/mcL Liver Function 11/16/18 Range/Units 08:41 Total Bilirubin 14.4 H (0.3-1.0) mg/dL Direct Bilirubin 9.7 H (0.0-0.2) mg/dL AST 815 H (13-39) Units/L ALT > 500 H (7-52) Units/L Alkaline Phosphatase 155 H (34-104) Units/L Albumin 2.8 L (3.5-5.7) g/dL - ABG Interpretation ABG results: PT/INR, D-dimer PT 18.2 Seconds (9.4-12.1) H 11/15/18 06:09 Consult Discharge Plan - Plan Referrals: Matthew Eisenberg DO [Primary Care Provider] - <Yosi Marx - Last Filed: 11/16/18 12:36> Date of Encounter: 11/16/18 - Assessment and plan (1) Hepatitis A Current Visit: Yes Status: Acute Qualifiers: Hepatic coma status: without hepatic coma Qualified Code(s): B15.9 - Hepatitis A without hepatic coma (2) Jaundice Current Visit: Yes Status: Resolved (3) Abdominal pain Current Visit: Yes Status: Acute Qualifiers: Abdominal location: generalized Qualified Code(s): R10.84 - Generalized abdominal pain (4) Alcohol dependence Current Visit: Yes Status: Acute Qualifiers: Substance use status: in withdrawal Complication of substance-induced condition: uncomplicated Qualified Code(s): F10.230 - Alcohol dependence with withdrawal, uncomplicated (5) B12 deficiency Current Visit: Yes Status: Acute (6) UTI (urinary tract infection) Current Visit: Yes Status: Acute Qualifiers: Urinary tract infection type: acute cystitis Hematuria presence: without hematuria Qualified Code(s): N30.00 - Acute cystitis without hematuria (7) Hepatitis C Current Visit: Yes Status: Acute Qualifiers: Viral hepatitis chronicity: unspecified Hepatic coma status: without hepatic coma Qualified Code(s): B19.20 - Unspecified viral hepatitis C without hepatic coma - Constitutional Vitals: Temp Pulse Resp BP Pulse Ox 99.0 F 79 15 112/71 96 11/16/18 10:53 11/16/18 10:53 11/16/18 10:53 11/16/18 10:53 11/16/18 10:53 Internal Medicine: Result - Labs CBC & Chem 7: 11/16/18 08:41 11/16/18 11:08 Labs: Short CBC 11/16/18 Range/Units 08:41 WBC 4.4 (4.3-11.1) K/mcL Hgb 14.0 (12.9-16.9) g/dL Hct 38.6 (37.5-50.1) % Plt Count 116 L (140-400) K/mcL BMP 11/16/18 11:08 Sodium 133 L Potassium 3.5 Chloride 102 Carbon Dioxide 24 BUN 2 L Creatinine 0.75 Glucose 96 Calcium 8.3 L Liver Function 11/16/18 Range/Units 08:41 Total Bilirubin 14.4 H (0.3-1.0) mg/dL Direct Bilirubin 9.7 H (0.0-0.2) mg/dL AST 815 H (13-39) Units/L ALT > 500 H (7-52) Units/L Alkaline Phosphatase 155 H (34-104) Units/L Albumin 2.8 L (3.5-5.7) g/dL - ABG Interpretation ABG results: PT/INR, D-dimer PT 20.9 Seconds (9.4-12.1) H 11/16/18 11:08 - Attending Attestation I examined this patient and my medical decision-making was reviewed with the Resident Physician Dr. Eisenberg. I agree with the documented findings, disposition and treatment plan as described except to the extent set forth below. Mr. Campbell is a 33 year old male with a past medical history of recent hepatitis A, chronic hepatitis C, IV drug abuse history, and fatty liver that presents to ER with worsening nausea, vomiting, and jaundice. Patient was recently diagnosed with hepatitis A infection dx on 11/05/18. Pt is chronic alcoholic too he still drinking 1-2 beers every night. He denied any CP / SOB. His abd pain is better with current meds. He is tolerating PO intake well. Gen: A, A, O x 3 Chest: CTAB, No crackles, no wheezing Heart: S1S2+ RRR No murmurs HEENT: Sclera - icteric Skin- slightly jaundiced a/p 1. Acute non obstructive jaundice due to Hep A inf + Alcoholism 2. Acute Hep A inf 3. chronic Hep C 4. Alcohol dependence soft diet GI is on board GI recommend Acetylcystiene gtt Total bili still trending up However transaminases are trending down PO Thiamine and Folic acid B12 inj CIWA protocol Ativan as needed
[2018-11-16 11:50] LABS: INR 1.9; Prothrombin Time 20.9 Seconds (9.4-12.1)
[2018-11-16 11:58] LABS: BUN/Creatinine Ratio 3 (6-26); Blood Urea Nitrogen 2 mg/dL (6-20); Carbon Dioxide 24 mEq/L (23-29); Chloride 102 mEq/L (98-107); Glucose 96 mg/dL (70-105); Potassium 3.5 mEq/L (3.5-5.1); Sodium 133 mEq/L (136-145); eGFR For Non-African Americans > 60 (> 60)
[2018-11-16 11:59] LABS: Calcium 8.3 mg/dL (8.6-10.3); Osmolality,Calculated 272 (280-300)
--- NOTE | 2018-11-16 15:21 | Gastroenterology Progress Note ---
<ChavaDmitri - Last Filed: 11/16/18 15:19> Date of Encounter: 11/16/18 Time of Encounter: 10:00 - Assessment and plan (1) Hepatitis A Current Visit: Yes Status: Acute Assessment and plan: Patient with reactive Hepatitis A labs 10 days ago Was seen previously in ED on 11/05, and was discharged with symptom resolution - he returned for similar complaints T. bili 11.4 > 14.4 - this can lag behind other liver enzymes and may stay elevated for a couple more days AST improving 1150 > 815 today ALT >500 PT 18.2 > 20.9 today INR 1.6 > 1.9 today Patient's abdominal symptoms and jaundice are improved today Continue supportive care Patient on IVF hydration Patient on zofran for nausea Patient on oxycodone for pain Patient started on soft diet Continue N-acetylcysteine regimen - patient will need to remain inpatient for at least another day for treatment Qualifiers: Hepatic coma status: without hepatic coma Qualified Code(s): B15.9 - Hepatitis A without hepatic coma (2) Hepatitis C Current Visit: Yes Status: Acute Assessment and plan: Patient's lab was reactive for Hepatitis C on 11/15 Follow-up labs of hep C RNA quant and viral load were not detected Patient's presentation is more likely related to acute hepatitis A infection Qualifiers: Viral hepatitis chronicity: unspecified Hepatic coma status: without hepatic coma Qualified Code(s): B19.20 - Unspecified viral hepatitis C without hepatic coma - Time Spent With Patient Total time spent is greater than 50% in coordination of care (as documented) at patient's floor/unit and/or counseling patient: - Subjective Interval history: Patient seen and examined today. He states he is feeling better but seems agitated today. His abdominal pain and nausea are improved from yesterday. He has not vomited. He's been able to tolerate some of his meals. He denies CP, SOB, fevers/chills, numbness/tingling. - Constitutional Vitals: Temp Pulse Resp BP Pulse Ox 98.8 F 87 15 105/69 98 11/16/18 14:46 11/16/18 14:46 11/16/18 14:46 11/16/18 14:46 11/16/18 14:46 General appearance: Present: mild distress, A&O X 3 - Eye Eye exam: Present: scleral icterus (but improved from yesterday) - Respiratory Respiratory exam: Present: CTAB - Cardiovascular Cardiovascular exam: Present: RRR - GI/Abdominal GI/Abdominal exam: Present: normal bowel sounds, soft, tenderness (RUQ and epigastrium). Absent: distended, guarding, hepatomegaly, rebound, no peritoneal signs - Neurological Exam Neurological exam: Present: no focal deficits Additional comments: no asterixis - Psychiatric Psychiatric exam: Present: normal affect, normal mood - Skin Additional comments: jaundice - but improved from yesterday Results - Labs CBC & Chem 7: 11/16/18 08:41 11/16/18 11:08 Labs: Last Result Calcium 8.3 mg/dL (8.6-10.3) L 11/16/18 11:08 Entire Visit Hgb 14.0 g/dL (12.9-16.9) 11/16/18 08:41 Hct 38.6 % (37.5-50.1) 11/16/18 08:41 PT 20.9 Seconds (9.4-12.1) H 11/16/18 11:08 Total Bilirubin 14.4 mg/dL (0.3-1.0) H 11/16/18 08:41 AST 815 Units/L (13-39) H 11/16/18 08:41 ALT > 500 Units/L (7-52) H 11/16/18 08:41 Lipase 63 Units/L (11-82) 11/14/18 10:43 Acetaminophen < 10 mcg/mL (10-20) L 11/14/18 10:43 - ABG ABG results: PT/INR, D-dimer PT 20.9 Seconds (9.4-12.1) H 11/16/18 11:08 Consult Discharge Plan - Plan Referrals: Matthew Eisenberg DO [Primary Care Provider] - <Ranjith Petit - Last Filed: 11/16/18 17:19> Date of Encounter: 11/16/18 Time of Encounter: 12:25 - Time Spent With Patient Total time spent is greater than 50% in coordination of care (as documented) at patient's floor/unit and/or counseling patient: - Constitutional Vitals: Temp Pulse Resp BP Pulse Ox 98.8 F 87 15 105/69 98 11/16/18 14:46 11/16/18 14:46 11/16/18 14:46 11/16/18 14:46 11/16/18 14:46 Results - Labs CBC & Chem 7: 11/16/18 08:41 11/16/18 11:08 Labs: Last Result Calcium 8.3 mg/dL (8.6-10.3) L 11/16/18 11:08 Entire Visit Hgb 14.0 g/dL (12.9-16.9) 11/16/18 08:41 Hct 38.6 % (37.5-50.1) 11/16/18 08:41 PT 20.9 Seconds (9.4-12.1) H 11/16/18 11:08 Total Bilirubin 14.4 mg/dL (0.3-1.0) H 11/16/18 08:41 AST 815 Units/L (13-39) H 11/16/18 08:41 ALT > 500 Units/L (7-52) H 11/16/18 08:41 Lipase 63 Units/L (11-82) 11/14/18 10:43 Acetaminophen < 10 mcg/mL (10-20) L 11/14/18 10:43 - ABG ABG results: PT/INR, D-dimer PT 20.9 Seconds (9.4-12.1) H 11/16/18 11:08 - Attending Attestation I examined this patient and my medical decision-making was reviewed with the Resident Physician. I agree with the documented findings, disposition and treat ment plan as described except to the extent set forth below. Patient seen patient with the acute hepatitis A. Rec: Cont IV Mucomyst
[2018-11-16] MEDS: Acetylcysteine 7,700 MG in D5% in Water 1,000 ML IVC SCH (18:21)
[2018-11-16] MEDS ORDERED: *HR* LORazepam 0.5 MG TABLET PO ONE ×2 (22:07→23:45)
[2018-11-17 05:44] LABS: Red Cell Distribution Width 14.1 % (11.5-14.5)
[2018-11-17 05:50] LABS: Hematocrit 40.9 % (37.5-50.1); Immature Platelets 14.2 % (1.1-6.1); Mean Corpuscular HGB Conc 36.7 g/dL (31.6-35.5); Mean Corpuscular Hemoglobin 32.8 pg (28.0-33.3); Mean Corpuscular Volume 89.3 fL (83.0-100.0); Mean Platelet Volume 12.7 fL (9.4-12.4); Red Blood Count 4.58 M/mcL (4.19-5.50)
[2018-11-17 06:25] LABS: Bilirubin,Direct 13.6 mg/dL (0.0-0.2)
[2018-11-17 06:26] LABS: Alanine Aminotransferase > 500 Units/L (7-52); Albumin 3.2 g/dL (3.5-5.7); Albumin/Globulin Ratio 1.1 (1.1-2.2); Alkaline Phosphatase 158 Units/L (34-104); Aspartate Amino Transferase 393 Units/L (13-39); Bilirubin,Indirect 3.8 mg/dL (0.0-1.2); Bilirubin,Total 17.4 mg/dL (0.3-1.0); Globulin 2.8 g/dL (2.4-3.5)
[2018-11-17 06:48] VITALS: BP 105/71
[2018-11-17] MEDS: Thiamine (B-1) 100 MG TABLET PO SCH (09:01)
[2018-11-17] MEDS: Vitamin B Complex/Vit C/Vit E 1 EACH TABLET PO SCH (09:01)
[2018-11-17] MEDS: Folic Acid 1 MG TABLET PO SCH (09:01)
[2018-11-17] MEDS: Cyanocobalamin (B-12) 1,000 MCG/ML VIAL IM SCH (09:01)
[2018-11-17] MEDS: OXYCODONE Oral CONC 10 MG/0.5 ML ORAL.SYG SL PRN (09:05)
--- NOTE | 2018-11-17 10:09 | Discharge Summary ---
<KarrieeulogioMatthew stevens - Last Filed: 11/17/18 10:07> Date of Encounter: 11/17/18 Time of Encounter: 10:00 - Discharge Diagnosis (1) Hepatitis A Priority: Primary Status: Acute Qualifiers: Hepatic coma status: without hepatic coma Qualified Code(s): B15.9 - Hepatitis A without hepatic coma (2) Transaminitis Priority: Primary Status: Acute (3) Jaundice Priority: Primary Status: Resolved (4) Alcohol dependence Priority: Primary Status: Acute Qualifiers: Substance use status: in withdrawal Complication of substance-induced condition: uncomplicated Qualified Code(s): F10.230 - Alcohol dependence with withdrawal, uncomplicated (5) B12 deficiency Priority: Primary Status: Acute (6) Hepatitis C Priority: Secondary Status: Acute Qualifiers: Viral hepatitis chronicity: unspecified Hepatic coma status: without hepatic coma Qualified Code(s): B19.20 - Unspecified viral hepatitis C without hepatic coma (7) DVT prophylaxis Priority: Primary Status: Acute Hospital course: Mr. Campbell is a 33 M with a PMH of recent Hepatitis A infection, chronic hepatitis C (nonactive), former IVDU, alcoholic, and fatty liver that presented on 11/14/18 for nausea, vomiting, and jaundice. Patient was recently diagnosed with hepatitis A infection a few weeks ago. He says that the day before admission he noticed yellowing of his skin, increased vomiting and nausea, and increased abdominal tenderness. He denied any fever. He did say that he felt like he caught a cold citing clear productive sputum with cough. Patient also admits that he has been continuously drinking alcohol. He says he normally drinks 2-3 cans of [employer] Lemonade daily although as of late he has been only been able to handle one can. He does state it is been trying to stay adequately hydrated throughout the day. Patient presented to the ED on 11/14/2018. He was noticed to have jaundice, scleral icterus and hepatomegaly on examination. His liver enzymes showed an AST of 1293 and an ALT of 500. He demonstrated an alkaline phosphatase of 229. His renal function was normal. He did show an elevated prothrombin time and PTT. INR was in normal range. No thrombocytopenia was noted. He showed an elevated total bilirubin of 9.8. Patient was admitted for active hepatitis A infection and the need for IV hydration. Liver ultrasound revealed extensive new diffuse edematous gallbladder wall thickening with questionable trace pericholecystic fluid, suggesting acalculous cholecystitis, most likely due to the hepatitis. Patient also has a B12 deficiency which is currently being addressed. He continues to be on [facility] protocol for alcohol dependence. Although his AST has been downtrending, he continues to show elevated ALT and has bilirubin has been steadily rising. His INR has also been steadily increasing as well, from 1.4 on admission to currently 1.9. Patient also displays mild thrombocytopenia. When seen today, patient says his abdominal pain has improved and is only minimal today. He denie s any nausea or vomiting. Denies any fever. Denies any light-headedness or dizziness. He has been able to tolerate solid foods and liquids. He denies any chest pain or shortness of breath. He denies any dysuria or hematuria. Denies any melena or hematochezia. On examination, he displayed increased scleral icterus from compared to yesterday, sublinguial jaundice, as well as increased skin jaundice. Patient was very adamant about leaving the hospital today, however given his current state of acute liver failure in the context of Hepatitis A infection and chronic alchoholism, we urged the patient to stay for at least a few more days so we could continue to treat him and monitor his liver function. We explained to him the risk of leaving the hospital now against medical advice, which included the risk of syncope, seizures, altered mental status, infection, and bleeding. The patient understood the risks and said that he still wanted to leave against medical advice. He said that he had things to take care of at home and he couldn't stay at the hospital. Patient will be discharged AMA today. He informed us that he will return to the ER later for readmission after he was able to take of matters at home. As a note, we warned the patient to not be driving and to always be accompanied by another person due to risk of syncope and seizures. Patient also has a deficiency of vitamin B12. He is currently being treated for it by his PCP and his prescriptions for B12 supplements at home which he was instructed to continue to take. Patient will also need to follow-up with his PCP for his gallbladder issues. Patient was instructed to refrain from fatty foods and given his hepatitis, was instructed to refrain from drinking alcohol. - Time Spent with Patient Total time spent providing and/or coordinating discharge services: Less than 30 minutes - Discharge Medications Home Medications: RX: Cyanocobalamin (Vitamin B-12) [Vitamin B-12] 1,000 mcg PO DAILY 11/16/18 [History] RX: Omeprazole [PriLOSEC] 20 mg PO DAILY 11/16/18 [History] Allergies/Adverse Reactions: Allergy/AdvReac Type Severity Reaction Status Date / Time cephalexin [From Keflex] AdvReac Dizziness,R Verified 11/16/18 21:27 BRI Date of admission: 11/15/18 10:31 Primary care physician: Matthew Gerardo DO Consults: 11/14/18 12:02 Consult to Gastroenterology [CONS] Stat Consulting Provider: Gastroenterology Maggie Reason for Consult: acute hep a/jaundice Call Completed: Yes 11/14/18 14:26 Consult to Extrusion Line Operator [CONS] Routine Reason for SW Consult: Alcohol dependence. Discharging clinician: Matthew Eisenberg Anticipated date of discharge: 11/17/18 - Constitutional Vitals: Temp Pulse Resp BP Pulse Ox 99.7 F H 102 14 105/71 98 11/17/18 06:36 11/17/18 06:36 11/17/18 06:36 11/17/18 06:36 11/17/18 06:36 General appearance: Present: A&O X 3, no acute distress, answers questions appropriately - Eye Eye exam: Present: EOMI, scleral icterus (B/L) Pupils: Present: PERRL - ENT ENT exam: Present: mucous membranes moist - Respiratory Respiratory exam: Present: CTAB. Absent: accessory muscle use, rales, rhonchi, wheezes - Cardiovascular Cardiovascular exam: Present: RRR, +S1, +S2. Absent: diastolic murmur, gallop, rubs, systolic murmur - GI/Abdominal GI/Abdominal exam: Present: normal bowel sounds, soft, tenderness (Minor tenderness in all 4 quadrants. ). Absent: distended, guarding, mass Additional comments: Negative Dias's Sign. - Extremities Exam Extremities exam: Present: full ROM, normal capillary refill, warm, radial pulses palpable and symmetrical. Absent: calf tenderness, cyanotic, pedal edema, tenderness - Neurological Exam Neurological exam: Present: CN II-XII intact, oriented X3, no focal deficits. Absent: pronater drift, facial droop, speech deficit - Skin Additional comments: Generalized jaundice present, most notably in the face and upper chest. - Patient Status Disposition: Left Against Medical Advice Condition: Serious Functional capacity at discharge: independent ambulation Overall status at discharge: patient is not back to baseline - Discharge Instructions Follow Up With: Matthew Eisenberg DO [Primary Care Provider] - - Diet and Activity Activity: resume usual activities as tolerated, other (Instructed patient to always be accompanied by someone and to not drive due to risk of syncope and seizure given his current state.) Diet: low fat, low cholesterol <AuralaSandro bachbu - Last Filed: 11/17/18 11:45> Date of Encounter: 11/17/18 - Discharge Diagnosis (1) Hepatitis A Status: Acute Qualifiers: Hepatic coma status: without hepatic coma Qualified Code(s): B15.9 - Hepatitis A without hepatic coma (2) Jaundice Status: Resolved (3) Abdominal pain Status: Acute Qualifiers: Abdominal location: generalized Qualified Code(s): R10.84 - Generalized abdominal pain (4) Alcohol dependence Status: Acute Qualifiers: Substance use status: in withdrawal Complication of substance-induced condition: uncomplicated Qualified Code(s): F10.230 - Alcohol dependence with withdrawal, uncomplicated (5) B12 deficiency Status: Acute (6) UTI (urinary tract infection) Status: Acute Qualifiers: Urinary tract infection type: acute cystitis Hematuria presence: without hematuria Qualified Code(s): N30.00 - Acute cystitis without hematuria (7) Hepatitis C Status: Acute Qualifiers: Viral hepatitis chronicity: unspecified Hepatic coma status: without hepatic coma Qualified Code(s): B19.20 - Unspecified viral hepatitis C without hepatic coma Hospital course: Mr. Campbell is a 33 year old male - Time Spent with Patient Total time spent providing and/or coordinating discharge services: Date of admission: 11/15/18 10:31 Primary care physician: Matthew Gerardo DO Consults: 11/14/18 12:02 Consult to Gastroenterology [CONS] Stat Consulting Provider: Gastroenterology Maggie Reason for Consult: acute hep a/jaundice Call Completed: Yes 11/14/18 14:26 Consult to Extrusion Line Operator [CONS] Routine Reason for SW Consult: Alcohol dependence. - Constitutional Vitals: Temp Pulse Resp BP Pulse Ox 99.7 F H 102 14 105/71 98 11/17/18 06:36 11/17/18 06:36 11/17/18 06:36 11/17/18 06:36 11/17/18 06:36 - Attending Attestation I examined this patient and my medical decision-making was reviewed with the Resident Physician Dr. Eisenberg. I agree with the documented findings, dispo sition and treatment plan as described except to the extent set forth below. Mr. Campbell is a 33 year old male with a past medical history of recent hepatitis A, chronic hepatitis C, IV drug abuse history, and fatty liver that presents to ER with worsening nausea, vomiting, and jaundice. Patient was recently diagnosed with hepatitis A infection dx on 11/05/18. Pt is chronic alcoholic too he still drinking 1-2 beers every night. He denied any CP / SOB. His abd pain is better with current meds. He is tolerating PO intake well. However is Total Bili still trending high along with INR. Gen: A, A, O x 3 Chest: CTAB, No crackles, no wheezing Heart: S1S2+ RRR No murmurs HEENT: Sclera - icteric Skin- slightly jaundiced a/p 1. Acute non obstructive jaundice due to Hep A inf + Alcoholism 2. Acute Hep A inf 3. chronic Hep C 4. Alcohol dependence GI recommend Acetylcystiene gtt Total bili and INR still trending up However transaminases are trending down PO Thiamine and Folic acid B12 inj [facility] protocol Ativan as needed Pt wanted to leave AMA now since he has some court issues and need to pay bills. I explained to him he is developing fulminate hepatitis , he is high risk to develop hepatic shock which can cause multi organ failure and lead to . However he still adamant to leave the hospital now wanted to come back tonight to ER again.
== END 2018-11-17 10:26 | disposition left against medical advice (07) ==
LOC: EMEROOARM 10:26 → 3ANU 10:26 → SUATTDRO 12:20 → 3ANU 12:42
PROVIDERS: ADMIT Hospitalist; ATTEND Family Medicine